=== PATIENT | female | born 1950 | race Caucasian/White ===

== ENCOUNTER 2017-01-01 09:47 | Day surgery (SDC) | payer MEDICARE, OTHER ==
--- NOTE | ~2017-01-01 | OP ---
Record Of Operation [facility] [address] [place]. [address] NAME: RUSTY PALM : 52 STATUS : [facility] PAT#: [id number] AGE: 66 ADM/REG DATE : 01/01/17 MR#: [id number] REPORT SERV DATE: 01/01/17 DICTATED BY: KEN GÓMEZ DATE: 01/01/17 REPORT STATUS : Draft TRANSCRIBED BY: MODRudolph DATE: 01/01/17 DATE OF PROCEDURE: 01/01/2017 PREOPERATIVE DIAGNOSES: 1. Right upper back sebaceous cyst with inflammation. 2. Anxiety. 3. Gastroesophageal reflux disease. 4. Obesity. POSTOPERATIVE DIAGNOSES: 1. Right upper back sebaceous cyst with inflammation. 2. Anxiety. 3. Gastroesophageal reflux disease. 4. Obesity. PROCEDURE: Excision of deep subcutaneous right back sebaceous cyst with layered closure (4.5 cm). ANESTHESIA: General, MAC. SURGEON: Ken Gómez M.D. RECEIVING OPERATOR: Ian. COMPLICATIONS: None. DRAINS: None. ESTIMATED BLOOD LOSS: 20 mL. OPERATIVE TECHNIQUE: The patient was brought to the operating room, placed on the table in supine position. She had preoperative IV antibiotics. She had sequential hose in place. She voided prior to procedure. She had adequate MAC IV sedation and was prepped and draped in sterile fashion with her right back elevated. Local anesthesia was instilled to the skin around the lesion. A 15 blade knife was used to make our longitudinal incision across the right upper back. The incision was carried through the subcutaneous tissues down the level of the sebaceous cyst. The cyst was excised sharply down the level of the fascia using electrocautery. The wound was then thoroughly irrigated. Hemostasis was obtained using electrocautery. The deep subcutaneous tissues were reapproximated using interrupted 2-0 Vicryl suture. The superficial subcutaneous tissues were reapproximated using interrupted 3 0 Vicryl suture. The skin edges were reapproximated using running subcuticular Monocryl suture. Dermabond was applied. She was extubated and taken to the recovery room in stable condition. All sponge and needle counts reported correct. Record Of Operation [facility] [address] [place]. [address] NAME: RUSTY PALM : 52 STATUS : [facility] PAT#: [id number] AGE: 66 ADM/REG DATE : 01/01/17 MR#: [id number] REPORT SERV DATE: 01/01/17 DICTATED BY: KEN GÓMEZ DATE: 01/01/17 REPORT STATUS : Draft TRANSCRIBED BY: ANUEL DATE: 01/01/17 RAJ/ANUEL Ken Gómez M.D. / [id number] CC: Tiffany Chacko M.D.
[~2017-01-01 09:47] MED LIST: AMB10 PO; ATV.5 PO; K-TABS10 MEQ PO; NORV5 PO; PR25 PO; PRILOSEC40 MG PO; SINGULAIR1 PO
[2017-01-01 10:46] LABS: HEMATOCRIT 41.9 % (36.0-48.0); HEMOGLOBIN 14.6 g/dL (12.0-16.0)
[2017-01-01 10:59] LABS: BUN (BLOOD UREA NITROGEN) 15 MG/DL (6-23); CALCIUM, SERUM 9.1 MG/DL (8.5-10.4); CHLORIDE, SERUM 107 MMOL/L (96-112); CO2 (CARBON DIOXIDE) 29 MMOL/L (24-34); CREATININE 0.79 MG/DL (0.55-1.02); GFR AFRICAN AMERICAN 91 ML/MIN (>=60); GFR NON AFRICAN AMERICAN 79 ML/MIN (>=60); GLUCOSE, SERUM 97 MG/DL (60-99); POTASSIUM, SERUM 3.5 MMOL/L (3.5-5.3); SODIUM, SERUM 144 MMOL/L (135-148)
== END 2017-01-01 17:15 | disposition home or self-care (01) ==
LOC: SDC 09:47
PROVIDERS: Surgery
PROC: 0JQ70ZZ Repair Back Subcutaneous Tissue and Fascia, Open Approach (ICD-10-PCS; 2017-01-01)
PROC: 0JB70ZZ Excision of Back Subcutaneous Tissue and Fascia, Open Approach (ICD-10-PCS; 2017-01-01)
PROC: 0JB70ZZ Excision of Back Subcutaneous Tissue and Fascia, Open Approach (ICD-10-PCS; principal; 2017-01-01 12:30)
DX: L72.0 Epidermal cyst (principal); F41.9 Anxiety disorder, unspecified; I10 Essential (primary) hypertension; K21.9 Gastro-esophageal reflux disease without esophagitis; E66.9 Obesity, unspecified; F41.0 Panic disorder [episodic paroxysmal anxiety]; Z88.5 Allergy status to narcotic agent; Z91.040 Latex allergy status; Z79.899 Other long term (current) drug therapy; Z90.49 Acquired absence of other specified parts of digestive tract; Z90.710 Acquired absence of both cervix and uterus; Z86.73 Personal history of transient ischemic attack (TIA), and cerebral infarction without residual deficits; Z87.442 Personal history of urinary calculi
CPT/HCPCS: 80048; 85014; 85018; 88305; 93005; J0690; J2175; J2250; J2270; J2405; J3010